=== PATIENT | female | born 1965 | race Caucasian/White ===

== ENCOUNTER 2017-12-01 13:21 | Emergency (ER) | payer MEDICARE, MEDICAID ==
[2017-12-01 13:33] VITALS: BP 127/80
[2017-12-01] MEDS ORDERED: Ketorolac 60 MG/2 ML SDV IM ONE (13:46)
--- NOTE | 2017-12-01 13:49 | EDM.PDOC ---
ED HPI GENERAL MEDICAL PROBLEM - General Chief Complaint: Back Pain or Injury Stated Complaint: PAINFUL KNOT MID UPPER BACK Time Seen by Provider: 12/01/17 13:40 Source of Information: Reports: Patient History Limitations: Reports: No Limitations - History of Present Illness INITIAL COMMENTS - FREE TEXT/NARRATIVE: 52-year-old female woke up 4 mornings ago with pain in her back, it is still bothering her. It hurts to move or breathe. She has taken Tylenol and hasn't helped. No specific trauma such as a fall, no cough or fever. Onset: Unknown/Unsure Duration: Day(s): (4 days) Worsens with: Reports: Breathing, Movement Associated Symptoms: Reports: No Other Symptoms Middle Back Pain Score (Numeric/FACES): 2 - Related Data Allergies Allergy/AdvReac Type Severity Reaction Status Date / Time amoxicillin trihydrate Allergy Other Verified 12/01/17 13:32 [From Augmentin] latex Allergy Other Verified 12/01/17 13:32 potassium clavulanate Allergy Other Verified 12/01/17 13:32 [From Augmentin] buspirone [Buspirone] AdvReac Nausea and Verified 12/01/17 13:32 Vomiting Sulfa (Sulfonamide AdvReac Nausea and Verified 12/01/17 13:32 Antibiotics) Vomiting Home Meds: Home Meds Escitalopram Oxalate [Lexapro] 20 mg PO DAILY 03/08/13 [History] LORazepam [Ativan] 1 mg PO BID 03/08/13 [History] Levothyroxine [Synthroid] 25 mcg PO DAILY 03/08/13 [History] Mirtazapine [Remeron] 15 mg PO DAILY 03/08/13 [History] Simvastatin 20 mg PO DAILY 03/08/13 [History] buPROPion HCl [Bupropion Xl] 150 mg PO DAILY 03/08/13 [History] Alclometasone Dipropionate 1 applic TP BID 08/08/15 [History] Latanoprost [Xalatan 0.005% Ophth Soln] 2.5 ml EYEBOTH BEDTIME 08/08/15 [History ] Mupirocin Oint [Bactroban Oint] 1 applic TOP TID 08/08/15 [History] Timolol Maleate [Timoptic 0.5% Ophth Soln] 1 drop EYEBOTH DAILY 08/08/15 [ History] Triamcinolone Acetonide [Triamcinolone Acetonide 0.1% Oint] 1 applic TOP BID 02/12 [History] Past Medical History HEENT History: Reports: Impaired Vision Other HEENT History: wears glasses 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: Reports: High Cholesterol Gastrointestinal History: Reports: None Genitourinary History: Reports: None 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: Psychiatric History: Reports: Anxiety, Depression, Panic Attack Endocrine/Metabolic History: Reports: Hypothyroidism Dermatologic History: Reports: Eczema - Infectious Disease History Infectious Disease History: Reports: Chicken Pox, Measles, Mumps - Past Surgical History Head Surgeries/Procedures: Reports: None HEENT Surgical History: Reports: None Cardiovascular Surgical History: Reports: None GI Surgical History: Reports: Colonoscopy, EGD Female Surgical History: Reports: Tubal Ligation Endocrine Surgical History: Reports: None Dermatological Surgical History: Reports: None Social & Family History - Tobacco Use Smoking Status *Q: Never Smoker Second Hand Smoke Exposure: No - Caffeine Use Caffeine Use: Reports: Coffee, Tea - Recreational Drug Use Recreational Drug Use: No ED ROS GENERAL - Review of Systems Review Of Systems: See Below Constitutional: Denies: Fever, Chills Respiratory: Denies: Shortness of Breath Cardiovascular: Denies: Chest Pain GI/Abdominal: Denies: Abdominal Pain, Nausea, Vomiting Musculoskeletal: Reports: Back Pain, Muscle Pain Skin: Reports: No Symptoms Neurological: Reports: No Symptoms ED EXAM, UPPER BACK/NECK PAIN - Physical Exam Exam: See Below Exam Limited By: No Limitations General Appearance: Alert, No Apparent Distress Head Exam: Atraumatic Neck Exam: Non-Tender Back Exam: Paraspinal Tenderness (Patient has tenderness to palpation of the right rhomboid area inside the right scapula, no vertebral percussion tenderness ) Course - Vital Signs Last Recorded V/S: Last Vital Signs Temp 97.0 F 12/01/17 13:34 Pulse 92 12/01/17 13:34 Resp 16 12/01/17 13:34 BP 127/80 12/01/17 13:34 Pulse Ox 95 12/01/17 13:34 - Orders/Labs/Meds Meds: Medications Discontinued Medications Generic Name Dose Route Start Last Admin Trade Name Freq PRN Reason Stop Dose Admin Ketorolac Tromethamine 60 mg 12/01/17 13:46 12/01/17 13:49 Toradol IM 12/01/17 13:47 60 mg ONETIME ONE Administration - Re-Assessments/Exams Free Text/Narrative Re-Assessment/Exam: 12/01/17 13:49 Patient has a strained rhomboid on the right side. She was given 60 mg of IM Toradol. 12/01/17 14:23 Patient responded well to the Toradol, and was discharged with 10 additional doses to take 3 times a day. She should recheck in 3 days if not improving satisfactorily she may need a physical therapy consultation. Departure - Departure Time of Disposition: 14:30 Disposition: Home, Self-Care 01 Condition: Good Clinical Impression: Rhomboid pain - Discharge Information Instructions: Muscle Pain, Adult Referrals: Hernán Sykes MD [Primary Care Provider] - Forms: ED Department Discharge Care Plan Goals: Continue your current medications, and take 1 pain pill every 6-8 hours for the next 3 days. Recheck in 2-3 days if not improving satisfactorily.
== END 2017-12-01 14:30 | disposition home or self-care (01) ==
LOC: JP.ED 13:21
DX: M25.511 Pain in right shoulder (principal); E78.00 Pure hypercholesterolemia, unspecified; F41.9 Anxiety disorder, unspecified; F32.9 Major depressive disorder, single episode, unspecified; Z88.1 Allergy status to other antibiotic agents; Z91.040 Latex allergy status; Z79.899 Other long term (current) drug therapy
CPT/HCPCS: 96372; 99282; J1885; 99283

== ENCOUNTER 2018-01-02 18:01 | Emergency (ER) | payer MEDICARE ==
[2018-01-02 18:13] VITALS: BP 129/81
--- NOTE | 2018-01-02 18:19 | EDM.PDOC ---
ED HPI GENERAL MEDICAL PROBLEM - General Chief Complaint: Skin Complaint Stated Complaint: RASH Time Seen by Provider: 01/02/18 18:19 Source of Information: Reports: Patient, Family, RN Notes Reviewed History Limitations: Reports: No Limitations - History of Present Illness INITIAL COMMENTS - FREE TEXT/NARRATIVE: Karen presents today with complaints of worsening rash to her chest, neck and thighs for 2 days. She complains of itchiness and irritation to the rash. Karen reports wearing a wool sweater 7 days ago and developing itching to bilateral wrists. She stopped wearing the sweater. She reports two days ago she developed the rash to her neck, chest and thighs. She has tried use of oatmeal bath packets and hydrocortisone without any improvement. She denies exposure to any new chemicals, soaps, detergents, lotions or topicals. - Related Data Allergies Allergy/AdvReac Type Severity Reaction Status Date / Time amoxicillin trihydrate Allergy Other Verified 01/02/18 18:09 [From Augmentin] latex Allergy Other Verified 01/02/18 18:09 potassium clavulanate Allergy Other Verified 01/02/18 18:09 [From Augmentin] buspirone [Buspirone] AdvReac Nausea and Verified 01/02/18 18:09 Vomiting Sulfa (Sulfonamide AdvReac Nausea and Verified 01/02/18 18:09 Antibiotics) Vomiting Home Meds: Home Meds Escitalopram Oxalate [Lexapro] 20 mg PO DAILY 03/08/13 [History] LORazepam [Ativan] 1 mg PO BID 03/08/13 [History] Levothyroxine [Synthroid] 25 mcg PO DAILY 03/08/13 [History] Mirtazapine [Remeron] 15 mg PO DAILY 03/08/13 [History] Simvastatin 20 mg PO DAILY 03/08/13 [History] buPROPion HCl [Bupropion Xl] 150 mg PO DAILY 03/08/13 [History] Alclometasone Dipropionate 1 applic TP BID 08/08/15 [History] Latanoprost [Xalatan 0.005% Ophth Soln] 2.5 ml EYEBOTH BEDTIME 08/08/15 [History ] Mupirocin Oint [Bactroban Oint] 1 applic TOP TID 08/08/15 [History] Timolol Maleate [Timoptic 0.5% Ophth Soln] 1 drop EYEBOTH DAILY 08/08/15 [ History] Triamcinolone Acetonide [Triamcinolone Acetonide 0.1% Oint] 1 applic TOP BID 02/12 [History] Past Medical History HEENT History: Reports: Impaired Vision Other HEENT History: wears glasses 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: Reports: High Cholesterol Gastrointestinal History: Reports: None Genitourinary History: Reports: 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: Psychiatric History: Reports: Anxiety, Depression, Panic Attack Endocrine/Metabolic History: Reports: Hypothyroidism Dermatologic History: Reports: Eczema - Infectious Disease History Infectious Disease History: Reports: Chicken Pox, Measles, Mumps - Past Surgical History Head Surgeries/Procedures: Reports: None HEENT Surgical History: Reports: None Cardiovascular Surgical History: Reports: None GI Surgical History: Reports: Colonoscopy, EGD Female Surgical History: Reports: Tubal Ligation Endocrine Surgical History: Reports: None Dermatological Surgical History: Reports: None Social & Family History - Tobacco Use Smoking Status *Q: Never Smoker Second Hand Smoke Exposure: No - Caffeine Use Caffeine Use: Reports: Coffee, Tea - Recreational Drug Use Recreational Drug Use: No ED ROS GENERAL - Review of Systems Review Of Systems: See Below Constitutional: Denies: Fever, Chills, Malaise, Weakness HEENT: Reports: No Symptoms Respiratory: Reports: No Symptoms Cardiovascular: Reports: No Symptoms Endocrine: Reports: No Symptoms GI/Abdominal: Reports: No Symptoms Musculoskeletal: Reports: No Symptoms Skin: Reports: Pruritis, Rash Neurological: Reports: No Symptoms Psychiatric: Reports: No Symptoms Hematologic/Lymphatic: Reports: No Symptoms Immunologic: Reports: No Symptoms ED EXAM, SKIN/RASH Exam: See Below Text/Narrative:: Karen presents today for worsening rash with pruritis for two days of the chest , neck and anterior thighs. She has tried use of hydrocortisone and oatmeal bath without benefit. Exam Limited By: No Limitations General Appearance: Alert, WD/WN, No Apparent Distress Eye Exam: Bilateral Eye: Normal Inspection, PERRL Ears: Normal External Exam, Normal Canal, Hearing Grossly Normal, Normal TMs Nose: Normal Inspection, Normal Mucosa Throat/Mouth: Normal Inspection, Normal Lips, Normal Oropharynx, Normal Voice, No Airway Compromise Head: Atraumatic, Normocephalic Neck: Normal Inspection, Supple, Non-Tender, Full Range of Motion. No: Lymphadenopathy (R), Lymphadenopathy (L) Respiratory/Chest: No Respiratory Distress, Lungs Clear, Normal Breath Sounds, No Accessory Muscle Use, Chest Non-Tender Cardiovascular: Normal Peripheral Pulses, Regular Rate, Rhythm, No Edema, No Murmur, No Rub, Other (Rash to chest and neck. ) Back Exam: Normal Inspection, Full Range of Motion. No: CVA Tenderness (R), CVA Tenderness (L) Extremities: Normal Inspection, Normal Range of Motion, Non-Tender, No Pedal Edema, Normal Capillary Refill, Other (Rash to thighs) Neurological: Alert, Oriented, Normal Cognition, Normal Reflexes, No Motor/ Sensory Deficits Psychiatric: Normal Affect, Normal Mood Skin: Warm, Dry, Excoriations, Rash. No: Increased Warmth, Petechiae Location, Skin: Neck, Chest, Abdomen, Other (anterior thighs) Characteristics: Maculopapular, Other (dry, no specific pattern, slightly erythematous without signs of infection. ) Associated features: Scaling Lymphatic: No Adenopathy Course - Vital Signs Last Recorded V/S: Last Vital Signs Temp 36.2 C 01/02/18 18:13 Pulse 86 01/02/18 18:13 Resp 16 01/02/18 18:13 BP 129/81 01/02/18 18:13 Pulse Ox 97 01/02/18 18:13 - Orders/Labs/Meds Meds: Medications Discontinued Medications Generic Name Dose Route Start Last Admin Trade Name Pratikq PRN Reason Stop Dose Admin Hydroxyzine HCl 100 mg 01/02/18 19:00 Vistaril IM 01/02/18 19:01 ONETIME ONE Departure - Departure Time of Disposition: 18:52 Disposition: Home, Self-Care 01 Condition: Good Clinical Impression: Eczema, Pruritus of skin, Dry skin dermatitis - Discharge Information *PRESCRIPTION DRUG MONITORING PROGRAM REVIEWED*: No *COPY OF PRESCRIPTION DRUG MONITORING REPORT IN PATIENT RIYA: No Referrals: Hernán Sykes MD [Primary Care Provider] - Forms: ED Department Discharge Additional Instructions: You have been evaluated and treated for eczema, itching and dry skin. Do not use soaps on your skin. Bathe every other or every 2 days. You can use eucerin cream or the equivalent to your skin for moisture. Use triamcinolone to rash as directed. Take hydroxyzine 25mg by mouth three times a day for itching. Take prednisone 40mg by mouth daily for the rash. Follow up with your primary provider in 3 to 5 days for a recheck of the rash. Return for worsening, issues or concerns. - Assessment/Plan Assessment:: Eczema, Pruritus of skin, Dry skin dermatitis Plan: Patient evaluated and treated for eczema, itching and dry skin. Do not use soaps on the skin. Bathe every other or every 2 days. Use eucerin cream/lotion or the equivalent to skin for moisture twice daily. Use triamcinolone to rash as directed. Take hydroxyzine 25mg by mouth three times a day for itching. Take prednisone 40mg by mouth daily for the rash. Follow up with primary provider in 3 to 5 days for a recheck of the rash. Return for worsening, issues or concerns.
[2018-01-02] MEDS ORDERED: hydrOXYzine HCl 100 MG/2 ML SDV IM ONE (19:00)
== END 2018-01-02 19:23 | disposition home or self-care (01) ==
LOC: JP.ED 18:01
DX: L30.9 Dermatitis, unspecified (principal); E78.00 Pure hypercholesterolemia, unspecified; E03.9 Hypothyroidism, unspecified; F41.9 Anxiety disorder, unspecified; F32.9 Major depressive disorder, single episode, unspecified; Z79.899 Other long term (current) drug therapy; Z88.1 Allergy status to other antibiotic agents; Z88.2 Allergy status to sulfonamides; Z88.8 Allergy status to other drugs, medicaments and biological substances
CPT/HCPCS: 96372; 99282; J3410

== ENCOUNTER 2018-04-17 10:07 | Emergency (ER) | payer MEDICARE, MEDICAID ==
[2018-04-17 10:29] VITALS: BP 110/69
--- NOTE | 2018-04-17 10:47 | EDM.PDOC ---
ED HPI GENERAL MEDICAL PROBLEM - General Chief Complaint: Lower Extremity Injury/Pain Stated Complaint: HURT LT ANKLE Time Seen by Provider: 04/17/18 10:35 Source of Information: Reports: Patient History Limitations: Reports: No Limitations - History of Present Illness INITIAL COMMENTS - FREE TEXT/NARRATIVE: 53-year-old female slipped on the ice this morning injuring her left foot. No other injury. It's now painful to bear weight but she has no significant swelling or bruising. The ankle is nontender, knee is nontender. Most of her pain is on the top of her foot. Onset: Sudden Duration: Hour(s): (Within the last 2 hours) Location: Reports: Lower Extremity, Left Associated Symptoms: Reports: No Other Symptoms Left Ankle Pain Score (Numeric/FACES): 9 - Related Data Allergies Allergy/AdvReac Type Severity Reaction Status Date / Time amoxicillin trihydrate Allergy Other Verified 01/02/18 18:09 [From Augmentin] latex Allergy Other Verified 01/02/18 18:09 potassium clavulanate Allergy Other Verified 01/02/18 18:09 [From Augmentin] buspirone [Buspirone] AdvReac Nausea and Verified 01/02/18 18:09 Vomiting Sulfa (Sulfonamide AdvReac Nausea and Verified 01/02/18 18:09 Antibiotics) Vomiting Home Meds: Home Meds Escitalopram Oxalate [Lexapro] 20 mg PO DAILY 03/08/13 [History] LORazepam [Ativan] 1 mg PO BID 03/08/13 [History] Levothyroxine [Synthroid] 25 mcg PO DAILY 03/08/13 [History] Mirtazapine [Remeron] 15 mg PO DAILY 03/08/13 [History] Simvastatin 20 mg PO DAILY 03/08/13 [History] buPROPion HCl [Bupropion Xl] 150 mg PO DAILY 03/08/13 [History] Alclometasone Dipropionate 1 applic TP BID 08/08/15 [History] Latanoprost [Xalatan 0.005% Ophth Soln] 2.5 ml EYEBOTH BEDTIME 08/08/15 [History ] Mupirocin Oint [Bactroban Oint] 1 applic TOP TID 08/08/15 [History] Timolol Maleate [Timoptic 0.5% Ophth Soln] 1 drop EYEBOTH DAILY 08/08/15 [ History] Triamcinolone Acetonide [Triamcinolone Acetonide 0.1% Oint] 1 applic TOP BID 02/12 [History] Past Medical History HEENT History: Reports: Impaired Vision Other HEENT History: wears glasses 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: Reports: High Cholesterol Gastrointestinal History: Reports: None Genitourinary History: Reports: 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: Psychiatric History: Reports: Anxiety, Depression, Panic Attack Endocrine/Metabolic History: Reports: Hypothyroidism Dermatologic History: Reports: Eczema - Infectious Disease History Infectious Disease History: Reports: Chicken Pox, Measles, Mumps - Past Surgical History Head Surgeries/Procedures: Reports: None HEENT Surgical History: Reports: None Cardiovascular Surgical History: Reports: None GI Surgical History: Reports: Colonoscopy, EGD Female Surgical History: Reports: Tubal Ligation Endocrine Surgical History: Reports: None Dermatological Surgical History: Reports: None Social & Family History - Tobacco Use Smoking Status *Q: Never Smoker - Caffeine Use Caffeine Use: Reports: Coffee, Soda - Recreational Drug Use Recreational Drug Use: No Review of Systems - Review of Systems Review Of Systems: See Below Constitutional: Denies: Fever Respiratory: Reports: No Symptoms Cardiovascular: Reports: No Symptoms GI/Abdominal: Reports: No Symptoms Skin: Reports: No Symptoms Neurological: Denies: Headache ED EXAM, GENERAL - Physical Exam Exam: See Below Exam Limited By: No Limitations General Appearance: Alert, No Apparent Distress Respiratory/Chest: No Respiratory Distress Extremities: Other (Exam is otherwise limited to the lower extremities. The feet appear symmetric, the left foot is palpated and has no pain over the medial or lateral malleolus. She is tender to palpation over the proximal metatarsals especially laterally, but no crepitus or deformity.) Course - Vital Signs Last Recorded V/S: Last Vital Signs Temp 96.8 F 04/17/18 10:28 Pulse 85 04/17/18 10:28 Resp 16 04/17/18 10:28 BP 110/69 04/17/18 10:28 Pulse Ox 95 04/17/18 10:28 - Orders/Labs/Meds Orders: Active Orders 24 hr Category Date Time Status Foot Comp Min 3V Lt [CR] Stat Exams 04/17/18 10:40 Taken - Re-Assessments/Exams Free Text/Narrative Re-Assessment/Exam: 04/17/18 10:47 Foot x-ray was obtained of the left foot. 04/17/18 10:57 X-ray looks normal, three-inch Emanuel wrap was applied to the foot and she'll increase ambulation as tolerated. Departure - Departure Time of Disposition: 11:06 Disposition: Home, Self-Care 01 Condition: Good Clinical Impression: Sprain of foot, left Qualifiers: Encounter type: initial encounter Qualified Code(s): S93.602A - Unspecified sprain of left foot, initial encounter - Discharge Information Instructions: Foot Sprain Referrals: Hernán Sykes MD [Primary Care Provider] - Forms: ED Department Discharge Care Plan Goals: Wear Emanuel wrap for support, ibuprofen or naproxen will help with pain and increase activity as tolerated. Consider rechecking next week if not improving satisfactorily. - My Orders Last 24 Hours: My Active Orders 04/17/18 10:40 Foot Comp Min 3V Lt [CR] Stat - Assessment/Plan Last 24 Hours: My Active Orders 04/17/18 10:40 Foot Comp Min 3V Lt [CR] Stat
== END 2018-04-17 11:00 | disposition home or self-care (01) ==
LOC: JP.ED 10:07
DX: S93.602A Unspecified sprain of left foot, initial encounter (principal); E78.00 Pure hypercholesterolemia, unspecified; F41.9 Anxiety disorder, unspecified; F32.9 Major depressive disorder, single episode, unspecified; Z88.1 Allergy status to other antibiotic agents; Z88.2 Allergy status to sulfonamides; Z79.899 Other long term (current) drug therapy; W00.0XXA Fall on same level due to ice and snow, initial encounter
CPT/HCPCS: 73630-LT; 99284

== ENCOUNTER 2018-10-09 13:01 | Emergency (ER) | payer MEDICARE ==
[2018-10-09] MEDS ORDERED: Meclizine 25 MG Tab PO ONE (13:41)
[2018-10-09] MEDS ORDERED: Ondansetron 4 MG Tab.DIS PO ONE (13:41)
--- NOTE | 2018-10-09 13:44 | EDM.PDOC ---
ED HPI GENERAL MEDICAL PROBLEM - General Chief Complaint: General Stated Complaint: DIZZY,NOT FEELING WELL Time Seen by Provider: 10/09/18 13:36 Source of Information: Reports: Patient, RN Notes Reviewed History Limitations: Reports: No Limitations - History of Present Illness INITIAL COMMENTS - FREE TEXT/NARRATIVE: 53-year-old female presents emergency department today complaint of dizziness, she states he started feeling dizzy last night this morning still feeling dizzy she describes the dizziness as room spinning she does have some difficulty walking and is nauseated. No other complaints at this time denies Pain Score (Numeric/FACES): 0 - Related Data Allergies Allergy/AdvReac Type Severity Reaction Status Date / Time amoxicillin trihydrate Allergy Other Verified 10/09/18 13:20 [From Augmentin] latex Allergy Other Verified 10/09/18 13:20 potassium clavulanate Allergy Other Verified 10/09/18 13:20 [From Augmentin] buspirone [Buspirone] AdvReac Nausea and Verified 10/09/18 13:20 Vomiting Sulfa (Sulfonamide AdvReac Nausea and Verified 10/09/18 13:20 Antibiotics) Vomiting Home Meds: Home Meds Escitalopram Oxalate [Lexapro] 20 mg PO DAILY 03/08/13 [History] LORazepam [Ativan] 1 mg PO BID 03/08/13 [History] Levothyroxine [Synthroid] 25 mcg PO DAILY 03/08/13 [History] Mirtazapine [Remeron] 15 mg PO DAILY 03/08/13 [History] Simvastatin 20 mg PO DAILY 03/08/13 [History] buPROPion HCl [Bupropion Xl] 150 mg PO DAILY 03/08/13 [History] Alclometasone Dipropionate 1 applic TP BID 08/08/15 [History] Latanoprost [Xalatan 0.005% Ophth Soln] 2.5 ml EYEBOTH BEDTIME 08/08/15 [History ] Mupirocin Oint [Bactroban Oint] 1 applic TOP TID 08/08/15 [History] Timolol Maleate [Timoptic 0.5% Ophth Soln] 1 drop EYEBOTH DAILY 08/08/15 [ History] Triamcinolone Acetonide [Triamcinolone Acetonide 0.1% Oint] 1 applic TOP BID 02/12 [History] Past Medical History HEENT History: Reports: Impaired Vision Other HEENT History: wears glasses 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: Reports: High Cholesterol 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: Psychiatric History: Reports: Anxiety, Depression, Panic Attack Endocrine/Metabolic History: Reports: Hypothyroidism Dermatologic History: Reports: Eczema - Infectious Disease History Infectious Disease History: Reports: Chicken Pox, Measles, Mumps - Past Surgical History Head Surgeries/Procedures: Reports: None HEENT Surgical History: Reports: None Cardiovascular Surgical History: Reports: None GI Surgical History: Reports: Colonoscopy, EGD Female Surgical History: Reports: Tubal Ligation Endocrine Surgical History: Reports: None Dermatological Surgical History: Reports: None Social & Family History - Tobacco Use Smoking Status *Q: Never Smoker - Caffeine Use Caffeine Use: Reports: Coffee, Soda - Recreational Drug Use Recreational Drug Use: No ED ROS GENERAL - Review of Systems Review Of Systems: See Below Constitutional: Reports: No Symptoms HEENT: Reports: No Symptoms Respiratory: Reports: No Symptoms Cardiovascular: Reports: No Symptoms GI/Abdominal: Reports: No Symptoms : Reports: No Symptoms Musculoskeletal: Reports: No Symptoms Neurological: Reports: Dizziness, Difficulty Walking ED EXAM, GENERAL - Physical Exam Exam: See Below Free Text/Narrative:: General: Female, not in any distress, alert and oriented x3 HEENT: head is atraumatic normocephalic, eyes pupils equal round reactive to light, sclera clear no conjunctivitis appreciated extraocular eye movements intact. Ears tympanic membranes clear and aparicio landmarks and light reflex are present bilaterally canals are clear. Nose no septal deviation, nares are clear, no blood present. Mouth mucosa is moist and pink no erythema or exudate noted in soft palate, tongue is midline uvula is midline, dentition is intact. Neck: Supple no thyromegaly no tracheal deviation. Nodes: Cervical nodes subclavicular nodes nontender no palpable lymphadenopathy noted. Lungs: clear to auscultation bilaterally with symmetrical respirations, no adventitious noise appreciated. CV: Regular rate and rhythm S1 and S2 appreciated no murmurs rubs or gallops noted. Head impulse test: Negative loss of fixation with corrective saccades when head turned to the bilateral Nystagmus: unidirectional, horizontal 0-beating nystagmus Skew deviation: grossly absent Course - Vital Signs Last Recorded V/S: Last Vital Signs Temp 97.0 F 10/09/18 13:20 Pulse 75 10/09/18 17:25 Resp 12 10/09/18 17:25 BP 110/71 10/09/18 17:25 Pulse Ox 99 10/09/18 17:25 - Orders/Labs/Meds Orders: Active Orders 24 hr Category Date Time Status Peripheral IV Care [RC] . DIRECTED Care 10/09/18 15:35 Active Iopamidol [Isovue-300 (61%)] Med 10/09/18 15:45 Active 150 ml IV . DIRECTED Sodium Chloride 0.9% [Normal Saline] 1,000 ml Med 10/09/18 15:45 Active IV ASDIRECTED Sodium Chloride 0.9% [Saline Flush] Med 10/09/18 15:35 Active 10 ml FLUSH ASDIRECTED PRN Peripheral IV Insertion Adult [OM.PC] Urgent Oth 10/09/18 15:35 Ordered Medication Orders Sodium Chloride (Normal Saline) 1,000 mls @ 500 mls/hr IV ASDIRECTED MARCE Iopamidol (Isovue-300 (61%)) 150 ml IV . DIRECTED MARCE Sodium Chloride (Saline Flush) 10 ml FLUSH ASDIRECTED PRN PRN Reason: Keep Vein Open Labs: Laboratory Tests 10/09/18 10/09/18 Range/Units 15:49 15:49 WBC 7.2 (4.5-11.0) K/uL RBC 3.77 (3.30-5.50) M/uL Hgb 11.7 L (12.0-15.0) g/dL Hct 36.7 (36.0-48.0) % MCV 97 (80-98) fL MCH 31 (27-31) pg MCHC 32 (32-36) % Plt Count 188 (150-400) K/uL Neut % (Auto) 75 H (36-66) % Lymph % (Auto) 16 L (24-44) % Otero % (Auto) 7 H (2-6) % Eos % (Auto) 2 (2-4) % Baso % (Auto) 0 (0-1) % Sodium 144 (140-148) mmol/L Potassium 4.3 (3.6-5.2) mmol/L Chloride 107 (100-108) mmol/L Carbon Dioxide 32 (21-32) mmol/L Anion Gap 4.6 L (5.0-14.0) mmol/L BUN 16 (7-18) mg/dL Creatinine 1.0 (0.6-1.0) mg/dL Est Cr Clr Drug Dosing 64.88 mL/min Estimated GFR (MDRD) 58 L (>60) Glucose 97 (74-106) mg/dL Calcium 8.7 (8.5-10.1) mg/dL Meds: Medications Generic Name Dose Route Start Last Admin Trade Name Freq PRN Reason Stop Dose Admin Sodium Chloride 1,000 mls @ 500 mls/hr 10/09/18 15:45 Normal Saline IV ASDIRECTED MARCE Iopamidol 150 ml 10/09/18 15:45 Isovue-300 (61%) IV . DIRECTED MARCE Sodium Chloride 10 ml 10/09/18 15:35 Saline Flush FLUSH ASDIRECTED PRN Keep Vein Open Discontinued Medications Generic Name Dose Route Start Last Admin Trade Name Freq PRN Reason Stop Dose Admin Sodium Chloride 100 mls @ 3.5 mls/sec 10/09/18 15:45 Normal Saline IV 10/09/18 15:46 ONETIME ONE Lorazepam 1 mg 10/09/18 14:59 10/09/18 15:03 Ativan PO 10/09/18 15:00 1 mg ONETIME ONE Administration Meclizine HCl 25 mg 10/09/18 13:41 10/09/18 13:58 Antivert PO 10/09/18 13:42 25 mg ONETIME ONE Administration Ondansetron HCl 4 mg 10/09/18 13:41 10/09/18 13:58 Zofran Odt PO 10/09/18 13:42 4 mg ONETIME ONE Administration Sodium Chloride 10 ml 10/09/18 15:45 Saline Flush FLUSH 10/09/18 15:46 ONETIME ONE Departure - Departure Time of Disposition: 17:34 Disposition: Home, Self-Care 01 Condition: Fair Clinical Impression: Vertigo - Discharge Information Referrals: Hernán Sykes MD [Primary Care Provider] - Forms: ED Department Discharge Additional Instructions: Try the meclizine [id number] as needed for dizzy symptoms, Please followup with your primary care provider in 2-3 days if not better, please call return to the emergency department with worsening of symptoms. - My Orders Last 24 Hours: My Active Orders 10/09/18 15:35 Peripheral IV Care [RC] . DIRECTED Sodium Chloride 0.9% [Saline Flush] 10 ml FLUSH ASDIRECTED PRN Peripheral IV Insertion Adult [OM.PC] Urgent 10/09/18 15:45 Iopamidol [Isovue-300 (61%)] 150 ml IV . DIRECTED Sodium Chloride 0.9% [Normal Saline] 1,000 ml IV ASDIRECTED - Assessment/Plan Last 24 Hours: My Active Orders 10/09/18 15:35 Peripheral IV Care [RC] . DIRECTED Sodium Chloride 0.9% [Saline Flush] 10 ml FLUSH ASDIRECTED PRN Peripheral IV Insertion Adult [OM.PC] Urgent 10/09/18 15:45 Iopamidol [Isovue-300 (61%)] 150 ml IV . DIRECTED Sodium Chloride 0.9% [Normal Saline] 1,000 ml IV ASDIRECTED Plan: Assessment Acuity = acute Site and laterality = vertigo Etiology = unclear etiology Manifestations = nausea now resolved Location of injury = Home Lab values = CBC, BMP, CTA all unremarkable Plan She had no improvement of the treatments provided which included fluids, meclizine, Ativan, plan is to follow up with primary care in the next 2-3 days for reevaluation discussed the possibility consultation with ear nose and throat This note was dictated using [employer] voice recognition software please call with any questions on syntax or grammar.
[2018-10-09] MEDS ORDERED: LORazepam 1 MG Tab PO ONE (14:59)
[2018-10-09] MEDS ORDERED: Sodium Chloride 0.9% 10 ML Syringe FLUSH PRN (15:35)
[2018-10-09] MEDS ORDERED: Sodium Chloride 0.9% 1,000 ML IV SCH (15:45)
[2018-10-09] MEDS ORDERED: Sodium Chloride 0.9% 10 ML Syringe FLUSH ONE (15:45)
[2018-10-09] MEDS ORDERED: Iopamidol 612 MG/ML 150 ML Bottle IV SCH (15:45)
[2018-10-09] MEDS ORDERED: Sodium Chloride 0.9% 100 ML IV ONE (15:45)
--- NOTE | 2018-10-09 17:17 | CRLCT ---
INDICATION: Difficulty walking. TECHNIQUE: High resolution axial CT images acquired through the head following rapid intravenous administration of iodinated contrast. Multiplanar MIPS of cranial vasculature performed. COMPARISON: None. FINDINGS: There is normal filling of the intracranial vasculature; i.e. there is no large vessel occlusion or intracranial stenosis. There is no cerebral aneurysm or evidence for vascular malformation. The underlying brain parenchyma is normal at CTA. IMPRESSION: Normal CTA head. Jurgen Bowens MD Neurointerventional Radiologist [facility] Please note that all CT scans at this facility use dose modulation, iterative reconstruction, and/or weight-based dosing when appropriate to reduce radiation dose to as low as reasonably achievable. Dictated by Jurgen Bowens MD @ Oct 11 2018 8:14AM Signed by Dr. Jurgen Bowens @ Oct 11 2018 12:34PM
[2018-10-09 17:25] VITALS: BP 110/71; PULSE 75
== END 2018-10-09 18:00 | disposition home or self-care (01) ==
LOC: JP.ED 13:01
DX: R42 Dizziness and giddiness (principal); E03.9 Hypothyroidism, unspecified; F41.9 Anxiety disorder, unspecified; F32.9 Major depressive disorder, single episode, unspecified; Z79.899 Other long term (current) drug therapy; Z98.51 Tubal ligation status; Z88.1 Allergy status to other antibiotic agents; Z88.2 Allergy status to sulfonamides; Z91.040 Latex allergy status
CPT/HCPCS: 36415; 70496; 80048; 85025; 99284; A9270; 99283

== ENCOUNTER 2018-11-17 21:05 | Emergency (ER) | payer MEDICARE ==
[2018-11-17 21:25] VITALS: BP 100/60; PULSE 57
--- NOTE | 2018-11-17 21:38 | EDM.PDOC ---
ED HPI GENERAL MEDICAL PROBLEM - General Chief Complaint: Fever Stated Complaint: COUGH & FEVER Time Seen by Provider: 11/17/18 21:25 Source of Information: Reports: Patient History Limitations: Reports: No Limitations - History of Present Illness INITIAL COMMENTS - FREE TEXT/NARRATIVE: 53-year-old female who was fine until this morning when she woke up with generalized body aches, fever, a cough and nasal congestion. She's felt awful all day long, her body feels warm, she has a persistent cough and she coughs so hard she's been throwing up. Persistent nasal congestion and scratchy throat. No shortness of breath. She is coughing up "yellow stuff". She is unsure where she picked up the infection. She denies abdominal pain. Onset: Unknown/Unsure (Woke up with symptoms) Associated Symptoms: Reports: Cough, Fever/Chills, Nausea/Vomiting, Weakness, Other (Generalized muscle aches). Denies: Shortness of Breath - Related Data Allergies Allergy/AdvReac Type Severity Reaction Status Date / Time amoxicillin trihydrate Allergy Other Verified 11/17/18 21:20 [From Augmentin] latex Allergy Other Verified 11/17/18 21:20 potassium clavulanate Allergy Other Verified 11/17/18 21:20 [From Augmentin] buspirone [Buspirone] AdvReac Nausea and Verified 11/17/18 21:20 Vomiting Sulfa (Sulfonamide AdvReac Nausea and Verified 11/17/18 21:20 Antibiotics) Vomiting Home Meds: Home Meds Escitalopram Oxalate [Lexapro] 20 mg PO DAILY 03/08/13 [History] LORazepam [Ativan] 1 mg PO BID 03/08/13 [History] Levothyroxine [Synthroid] 25 mcg PO DAILY 03/08/13 [History] Mirtazapine [Remeron] 15 mg PO DAILY 03/08/13 [History] Simvastatin 20 mg PO DAILY 03/08/13 [History] buPROPion HCl [Bupropion Xl] 150 mg PO DAILY 03/08/13 [History] Alclometasone Dipropionate 1 applic TP BID 08/08/15 [History] Latanoprost [Xalatan 0.005% Ophth Soln] 2.5 ml EYEBOTH BEDTIME 08/08/15 [History ] Mupirocin Oint [Bactroban Oint] 1 applic TOP TID 08/08/15 [History] Timolol Maleate [Timoptic 0.5% Ophth Soln] 1 drop EYEBOTH DAILY 08/08/15 [ History] Triamcinolone Acetonide [Triamcinolone Acetonide 0.1% Oint] 1 applic TOP BID 02/12 [History] Past Medical History HEENT History: Reports: Impaired Vision Other HEENT History: wears glasses 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: Reports: High Cholesterol Gastrointestinal History: Reports: None Genitourinary History: Reports: None 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: Psychiatric History: Reports: Anxiety, Depression, Panic Attack Endocrine/Metabolic History: Reports: Hypothyroidism Dermatologic History: Reports: Eczema - Infectious Disease History Infectious Disease History: Reports: Chicken Pox, Measles, Mumps - Past Surgical History Head Surgeries/Procedures: Reports: None HEENT Surgical History: Reports: None Cardiovascular Surgical History: Reports: None GI Surgical History: Reports: Colonoscopy, EGD Female Surgical History: Reports: Tubal Ligation Endocrine Surgical History: Reports: None Dermatological Surgical History: Reports: None Social & Family History - Tobacco Use Smoking Status *Q: Never Smoker - Caffeine Use Caffeine Use: Reports: Coffee, Soda, Tea - Recreational Drug Use Recreational Drug Use: No ED ROS GENERAL - Review of Systems Review Of Systems: See Below Constitutional: Denies: Fever, Chills HEENT: Reports: Rhinitis, Sinus Problem, Throat Pain Respiratory: Reports: Cough, Sputum. Denies: Shortness of Breath Cardiovascular: Denies: Chest Pain GI/Abdominal: Reports: Nausea, Vomiting. Denies: Abdominal Pain : Reports: No Symptoms Skin: Reports: No Symptoms. Denies: Rash Neurological: Reports: No Symptoms. Denies: Headache ED EXAM, GENERAL - Physical Exam Exam: See Below Exam Limited By: No Limitations General Appearance: Alert, No Apparent Distress, Other (She does have a persistent cough and looks miserable) Ears: Normal TMs Throat/Mouth: Normal Inspection Head: Atraumatic Neck: No: Lymphadenopathy (R), Lymphadenopathy (L) Respiratory/Chest: No Respiratory Distress, Lungs Clear Neurological: Alert, Oriented Skin Exam: Warm, Dry Course - Vital Signs Last Recorded V/S: Last Vital Signs Temp 99.1 F 11/17/18 21:28 Pulse 57 L 11/17/18 21:28 Resp 17 11/17/18 21:28 BP 100/60 11/17/18 21:28 Pulse Ox 96 11/17/18 21:28 - Re-Assessments/Exams Free Text/Narrative Re-Assessment/Exam: 11/17/18 21:38 A two-view chest x-ray was obtained. 11/17/18 21:55 Patient's chest x-ray looks perfectly clear. I explained to her that she has a viral cold and will have to resolve on its own, she can return if worsening such as difficulty breathing or persistent vomiting. Departure - Departure Time of Disposition: 22:08 Disposition: Home, Self-Care 01 Clinical Impression: Acute bronchitis, viral, Viral URI with cough - Discharge Information Instructions: Viral Respiratory Infection, [id number] Referrals: Hernán Sykes MD [Primary Care Provider] - Forms: ED Department Discharge Care Plan Goals: Rest, fluids, [id number] cold medicines may be helpful. Increase activity as tolerated and consider rechecking in 2-3 days if not improving satisfactorily. Return sooner if worsening such as difficulty breathing.
--- NOTE | 2018-11-17 22:02 | CRLCR ---
INDICATION: Dyspnea COMPARISON: None available. FINDINGS: PA and lateral views of the chest were obtained. The lungs are clear. No focal or diffuse infiltrates are present. The heart is normal in size. The mediastinum is normal in appearance. The osseous structures are normal in appearance for the patient`s age. IMPRESSION: Normal chest 2 views. Dictated by Zaki Langston MD @ Nov 17 2018 10:00PM Signed by Dr. Zaki Langston @ Nov 17 2018 10:01PM
== END 2018-11-17 22:13 | disposition home or self-care (01) ==
LOC: JP.ED 21:05
DX: J06.9 Acute upper respiratory infection, unspecified (principal); J20.8 Acute bronchitis due to other specified organisms; B97.89 Other viral agents as the cause of diseases classified elsewhere; Z88.1 Allergy status to other antibiotic agents; Z91.040 Latex allergy status; Z88.2 Allergy status to sulfonamides; E03.9 Hypothyroidism, unspecified; F41.9 Anxiety disorder, unspecified; F32.9 Major depressive disorder, single episode, unspecified; Z79.899 Other long term (current) drug therapy
CPT/HCPCS: 71046; 99283; 99283-25

== ENCOUNTER 2020-07-30 10:11 | Emergency (ER) | payer MEDICARE ==
[2020-07-30 10:44] VITALS: BP 103/68; PULSE 74
--- NOTE | 2020-07-30 11:07 | EDM.PDOC ---
ED HPI GENERAL MEDICAL PROBLEM - General Chief Complaint: Bite:Animal, Insect Stated Complaint: TICK BITE Time Seen by Provider: 07/30/20 11:00 Source of Information: Reports: Patient, Old Records, RN History Limitations: Reports: No Limitations - History of Present Illness INITIAL COMMENTS - FREE TEXT/NARRATIVE: 55 yo female presents with a wood tick in a plastic bag that her boyfriend removed from behind her L knee today. Did not reach out to her provider. 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: Other (see below) (none) - Related Data Allergies Allergy/AdvReac Type Severity Reaction Status Date / Time amoxicillin trihydrate Allergy Other Verified 07/30/20 10:43 [From Augmentin] latex Allergy Other Verified 07/30/20 10:43 potassium clavulanate Allergy Other Verified 07/30/20 10:43 [From Augmentin] buspirone [Buspirone] AdvReac Nausea and Verified 07/30/20 10:43 Vomiting Sulfa (Sulfonamide AdvReac Nausea and Verified 07/30/20 10:43 Antibiotics) Vomiting Home Meds: Home Meds Escitalopram Oxalate [Lexapro] 20 mg PO DAILY 03/08/13 [History] LORazepam [Ativan] 1 mg PO BID 03/08/13 [History] Levothyroxine [Synthroid] 25 mcg PO DAILY 03/08/13 [History] Simvastatin 20 mg PO DAILY 03/08/13 [History] buPROPion HCl [Bupropion Xl] 150 mg PO DAILY 03/08/13 [History] Alclometasone Dipropionate 1 applic TP BID 08/08/15 [History] Latanoprost [Xalatan 0.005% Ophth Soln] 2.5 ml EYEBOTH BEDTIME 08/08/15 [History] Mupirocin Oint [Bactroban Oint] 1 applic TOP TID 08/08/15 [History] Triamcinolone Acetonide [Triamcinolone Acetonide 0.1% Oint] 1 applic TOP BID 08/08/15 [History] timoloL maleate [Timoptic 0.5% Ophth Soln] 1 drop EYEBOTH DAILY 08/08/15 [History] traZODone 50 mg PO BEDTIME 07/30/20 [History] Past Medical History HEENT History: Reports: Impaired Vision Other HEENT History: wears glasses 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: Reports: High Cholesterol Gastrointestinal History: Reports: None Genitourinary History: Reports: 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: 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 History: Reports: Anxiety, Depression, Panic Attack Endocrine/Metabolic History: Reports: Hypothyroidism Dermatologic History: Reports: Eczema - Infectious Disease History Infectious Disease History: Reports: Chicken Pox, Measles, Mumps - Past Surgical History Head Surgeries/Procedures: Reports: None HEENT Surgical History: Reports: None Cardiovascular Surgical History: Reports: None GI Surgical History: Reports: Colonoscopy, EGD Female Surgical History: Reports: Tubal Ligation Endocrine Surgical History: Reports: None Dermatological Surgical History: Reports: None Social & Family History - Tobacco Use Tobacco Use Status *Q: Never Tobacco User - Caffeine Use Caffeine Use: Reports: Coffee, Soda, Tea ED ROS GENERAL - Review of Systems Review Of Systems: See Below Constitutional: Reports: No Symptoms Skin: Reports: Other (small wound behind the L knee where the tick was attached.) Neurological: Reports: No Symptoms ED EXAM, ANIMAL BITE - Physical Exam Exam: See Below Exam Limited By: No Limitations General Appearance: Alert, WD/WN, No Apparent Distress Extremities: Normal Inspection Neurological: Alert, Oriented, CN II-XII Intact, Normal Cognition, No Motor/Sensory Deficits Skin Exam: Normal Color, Warm/Dry, Other (small dot of dried blood behind the L knee where the tick was attached. ) Course - Vital Signs Last Recorded V/S: Last Vital Signs Temp 36.6 C 07/30/20 10:42 Pulse 74 07/30/20 10:42 Resp 16 07/30/20 10:42 BP 103/68 07/30/20 10:42 Pulse Ox 95 07/30/20 10:42 Departure - Departure Time of Disposition: 11:12 Disposition: Home, Self-Care 01 Condition: Good Clinical Impression: Wood tick bite - Discharge Information *PRESCRIPTION DRUG MONITORING PROGRAM REVIEWED*: Not Applicable *COPY OF PRESCRIPTION DRUG MONITORING REPORT IN PATIENT RIYA: Not Applicable Instructions: Tick Bite Information, Adult, [id number] Referrals: Hernán Sykes MD [Primary Care Provider] - Additional Instructions: Don't scratch your tick bite spot. Wash with alcohol or soap and water twice daily. Sepsis Event Note (ED) - Evaluation Sepsis Screening Result: No Definite Risk - Focused Exam Vital Signs: Vital Signs Temp Pulse Resp BP Pulse Ox 07/30/20 10:42 36.6 C 74 16 103/68 95
== END 2020-07-30 11:27 | disposition home or self-care (01) ==
LOC: JP.ED 10:11
DX: S80.262A Insect bite (nonvenomous), left knee, initial encounter (principal); E78.00 Pure hypercholesterolemia, unspecified; E03.9 Hypothyroidism, unspecified; Z88.0 Allergy status to penicillin; Z88.8 Allergy status to other drugs, medicaments and biological substances; Z91.040 Latex allergy status; Z88.2 Allergy status to sulfonamides; W57.XXXA Bitten or stung by nonvenomous insect and other nonvenomous arthropods, initial encounter
CPT/HCPCS: 99282

== ENCOUNTER 2023-10-05 19:46 | Emergency (ER) | payer MEDICARE ==
[2023-10-05 19:54] VITALS: BP 147/88; PULSE 98
[2023-10-05] MEDS: Diphtheria,Pertussis(Acell),Tetanus Vaccine 0.5 ML Syringe IM ONE (21:53)
== END 2023-10-05 22:05 | disposition home or self-care (01) ==
LOC: JP.ED 19:46
DX: S91.331A Puncture wound without foreign body, right foot, initial encounter (principal); E78.00 Pure hypercholesterolemia, unspecified; Z91.040 Latex allergy status; Z88.1 Allergy status to other antibiotic agents; Z88.2 Allergy status to sulfonamides; Z88.8 Allergy status to other drugs, medicaments and biological substances; Z23 Encounter for immunization; Z79.899 Other long term (current) drug therapy; W22.8XXA Striking against or struck by other objects, initial encounter
CPT/HCPCS: 73630-26-RT; 73630-RT; 90471; 90715; 99283-25

== ENCOUNTER 2024-06-02 12:40 | Emergency (ER) | payer MEDICARE ==
[2024-06-02 13:48] VITALS: BP 144/72; PULSE 85
== END 2024-06-02 15:33 | disposition home or self-care (01) ==
LOC: JP.ED 12:40
DX: S09.92XA Unspecified injury of nose, initial encounter (principal); Z79.899 Other long term (current) drug therapy; Z88.0 Allergy status to penicillin; Z88.2 Allergy status to sulfonamides; Z88.8 Allergy status to other drugs, medicaments and biological substances; Z91.040 Latex allergy status; W19.XXXA Unspecified fall, initial encounter; M25.562 Pain in left knee; G89.29 Other chronic pain; M70.42 Prepatellar bursitis, left knee; M85.68 Other cyst of bone, other site; R60.0 Localized edema; M89.8X8 Other specified disorders of bone, other site; R23.4 Changes in skin texture; M22.42 Chondromalacia patellae, left knee
CPT/HCPCS: 70160; 70160-26; 73721-26-LT; 73721-LT; 99283; 99284

== ENCOUNTER 2024-07-04 06:12 | Day surgery (SDC) | payer MEDICARE ==
[2024-07-04 06:32] LABS: HEMATOCRIT 39.6 % (34.3-46.0); HEMOGLOBIN 13.1 g/dL (11.2-15.5); MEAN CORPUSCULAR HEMOGLOBIN 32.8 pg (31.6-35.5); MEAN CORPUSCULAR HGB CONC 33.1 g/dL (31.6-35.5); WHITE BLOOD CELL COUNT,WBC 10.5 K/uL (3.2-11.0)
[2024-07-04] MEDS: Nozin Nasal Sanitizer NASBOTH ONE (06:46)
[2024-07-04 06:54] LABS: A/G RATIO 0.8 (1.2-2.2); ALANINE AMINOTRANSFERASE,ALT 19 U/L (12-78); ALBUMIN 3.6 g/dL (3.4-5.0); ALKALINE PHOSPHATASE 146 U/L (46-116); ASPARTATE AMNIOTRANSFERASE,AST 15 U/L (15-37); BILIRUBIN TOTAL 0.3 mg/dL (0.2-1.0); BLOOD UREA NITROGEN,BUN 23 mg/dL (7-18); CARBON DIOXIDE,CO2 27 mmol/L (21-32); CHLORIDE,CL 100 mmol/L (100-108); CREATININE 1.2 mg/dL (0.6-1.0); ESTIMATED GFR 52 mL/min (>60); GLUCOSE RANDOM 101 mg/dL (74-106); SODIUM,NA 141 mmol/L (140-148)
[2024-07-04] MEDS ORDERED: Neostigmine Methylsulfate 10 MG/10 ML MDV ONE (07:00)
[2024-07-04] MEDS ORDERED: Ondansetron 4 MG/2 ML SDV ONE (07:00)
[2024-07-04] MEDS ORDERED: Propofol 200 MG/20 ML SDV ONE (07:00)
[2024-07-04] MEDS ORDERED: Dexamethasone 4 MG/ML SDV ONE (07:00)
[2024-07-04] MEDS ORDERED: Rocuronium 50 MG/5 ML Vial ONE (07:00)
[2024-07-04] MEDS ORDERED: Glycopyrrolate 0.2 MG/ML 5 ML MDV ONE (07:00)
[2024-07-04] MEDS ORDERED: Succinylcholine 200 MG/10 ML MDV ONE (07:00)
[2024-07-04] MEDS ORDERED: fentaNYL 250 MCG/5 ML SDV ONE (07:02)
[2024-07-04] MEDS: Lactated Ringers 1,000 ML IV SCH (07:06)
[2024-07-04] MEDS: ceFAZolin 1 GM in Premix Bag 1 BAG IV ONE (07:55)
[2024-07-04] MEDS: Bupivacaine 0.5% 30 ML SDV INJECT ONE (08:00)
[2024-07-04] MEDS: Acetaminophen/HYDROcodone 325-5 MG Tab PO ONE (10:13)
[2024-07-04 10:48] VITALS: BP 132/70; PULSE 80
== END 2024-07-04 10:50 | disposition home or self-care (01) ==
LOC: JP.SDS 06:12
PROVIDERS: ATTEND Specialist
DX: M22.42 Chondromalacia patellae, left knee (principal); I25.10 Atherosclerotic heart disease of native coronary artery without angina pectoris; Z88.8 Allergy status to other drugs, medicaments and biological substances; Z91.040 Latex allergy status
CPT/HCPCS: 29877; 36415; 80053; 85027; A9270; J0330; J0665; J0689; J1100; J1596; J2405; J2704; J2710; J3010; J7120; J3490

== ENCOUNTER 2024-08-20 07:03 | Emergency (ER) | payer MEDICARE ==
[2024-08-20] MEDS: fentaNYL 100 MCG/2 ML SDV NASBOTH ONE (07:51)
[2024-08-20] MEDS: fentaNYL 50 MCG/ML SDV ONE (07:52)
[2024-08-20] MEDS: fentaNYL 100 MCG/2 ML SDV IM ONE (07:55)
[2024-08-20 09:18] VITALS: BP 117/61; PULSE 86
== END 2024-08-20 09:27 | disposition home or self-care (01) ==
LOC: JP.ED 07:03
DX: S42.032A Displaced fracture of lateral end of left clavicle, initial encounter for closed fracture (principal); E78.00 Pure hypercholesterolemia, unspecified; E03.9 Hypothyroidism, unspecified; Z79.899 Other long term (current) drug therapy; Z88.0 Allergy status to penicillin; Z91.040 Latex allergy status; Z88.2 Allergy status to sulfonamides; Z88.5 Allergy status to narcotic agent; Z88.8 Allergy status to other drugs, medicaments and biological substances; Z79.890 Hormone replacement therapy; W01.0XXA Fall on same level from slipping, tripping and stumbling without subsequent striking against object, initial encounter; Y92.009 Unspecified place in unspecified non-institutional (private) residence as the place of occurrence of the external cause
CPT/HCPCS: 73030; 73562; 99283; J3010

== ENCOUNTER 2024-08-23 22:48 | Emergency (ER) | payer MEDICARE ==
[2024-08-23 23:00] VITALS: PULSE 94
[2024-08-23 23:33] LABS: BASOPHILS ABSOLUTE AUTO 0.03 K/uL (0.00-0.10); BASOPHILS PERCENT AUTO 0.3 % (0.1-1.3); EOSINOPHILS ABSOLUTE AUTO 0.14 K/uL (0.00-0.40); EOSINOPHILS PERCENT AUTO 1.3 % (0.0-5.4); HEMOGLOBIN 11.7 g/dL (11.2-15.5); IMMATURE GRAN ABSOLUTE AUTO 0.04 K/uL (0.00-0.23); IMMATURE GRAN PERCENT AUTO 0.4 % (0.0-0.7); LYMPHOCYTES ABSOLUTE AUTO 0.95 K/uL (0.8-3.3); LYMPHOCYTES PERCENT AUTO 8.6 % (11.4-47.7); MEAN CORPUSCULAR HEMOGLOBIN 32.8 pg (31.6-35.5); MEAN CORPUSCULAR HGB CONC 33.4 g/dL (31.6-35.5); MONOCYTES ABSOLUTE AUTO 0.92 K/uL (0.20-0.90); MONOCYTES PERCENT AUTO 8.3 % (3.3-12.6); NEUTROPHILS ABSOLUTE AUTO 8.95 K/uL (1.0-7.6); NEUTROPHILS PERCENT AUTO 81.1 % (40.0-78.1); PLATELET COUNT,PLT 258 K/uL (130-375); RED BLOOD CELL COUNT 3.57 M/uL (3.77-5.24)
[2024-08-23 23:49] LABS: CALCIUM 8.7 mg/dL (8.5-10.1); CREATININE 1.2 mg/dL (0.6-1.0); EST CRCL DRUG DOSING (CG) 52.1 mL/min; POTASSIUM,K 3.2 mmol/L (3.6-5.2)
[2024-08-23 23:50] LABS: ANION GAP 11.2 mmol/L (5.0-14.0)
[2024-08-24] MEDS: Lidocaine 1% with EPINEPHrine 1:100,000 50 ML MDV SUBCUT STA
[2024-08-24] MEDS: Bacitracin Oint 1 GM U/D Packet TOP ONE
[2024-08-24 01:49] VITALS: BP 142/69
== END 2024-08-24 02:29 | disposition home or self-care (01) ==
LOC: JP.ED 22:48
DX: S02.85XA Fracture of orbit, unspecified, initial encounter for closed fracture (principal); S01.01XA Laceration without foreign body of scalp, initial encounter; E78.00 Pure hypercholesterolemia, unspecified; Z88.0 Allergy status to penicillin; Z88.2 Allergy status to sulfonamides; Z88.5 Allergy status to narcotic agent; Z91.040 Latex allergy status; Z79.890 Hormone replacement therapy; Z79.899 Other long term (current) drug therapy; W19.XXXA Unspecified fall, initial encounter; Y92.009 Unspecified place in unspecified non-institutional (private) residence as the place of occurrence of the external cause
CPT/HCPCS: 12031; 36415; 70450; 70486; 72125; 76377; 80048; 80307; 85025; 93010; 99283; 99284

== ENCOUNTER 2024-11-08 12:46 | Emergency (ER) | payer MEDICARE ==
[2024-11-08 15:08] VITALS: BP 115/58; PULSE 74
[2024-11-08] MEDS: Bacitracin Oint 1 GM U/D Packet TOP ONE (15:53)
== END 2024-11-08 15:57 | disposition home or self-care (01) ==
LOC: JP.ED 12:46
DX: S80.212A Abrasion, left knee, initial encounter (principal); L08.9 Local infection of the skin and subcutaneous tissue, unspecified; Z88.0 Allergy status to penicillin; Z88.5 Allergy status to narcotic agent; Z91.010 Allergy to peanuts; Z88.8 Allergy status to other drugs, medicaments and biological substances; Z88.2 Allergy status to sulfonamides; Z79.899 Other long term (current) drug therapy; Z79.890 Hormone replacement therapy; E78.00 Pure hypercholesterolemia, unspecified; W01.0XXA Fall on same level from slipping, tripping and stumbling without subsequent striking against object, initial encounter; Y93.89 Activity, other specified
CPT/HCPCS: 73562-26-LT; 73562-LT; 99283

== ENCOUNTER 2024-11-12 10:27 | Emergency (ER) | payer MEDICARE ==
[2024-11-12 11:40] VITALS: BP 138/75; PULSE 79
== END 2024-11-12 12:33 | disposition home or self-care (01) ==
LOC: JP.ED 10:27
DX: L03.116 Cellulitis of left lower limb (principal); E78.00 Pure hypercholesterolemia, unspecified; Z88.0 Allergy status to penicillin; Z91.040 Latex allergy status; Z88.2 Allergy status to sulfonamides; Z88.8 Allergy status to other drugs, medicaments and biological substances; Z88.5 Allergy status to narcotic agent; Z79.899 Other long term (current) drug therapy; Z79.890 Hormone replacement therapy
CPT/HCPCS: 99282; 99283

== ENCOUNTER 2024-11-14 17:48 | Emergency (ER) | payer MEDICARE ==
[2024-11-14 18:43] VITALS: BP 120/69; PULSE 83
== END 2024-11-14 18:49 | disposition home or self-care (01) ==
LOC: JP.ED 17:48
DX: Z53.21 Procedure and treatment not carried out due to patient leaving prior to being seen by health care provider (principal)

== ENCOUNTER 2025-01-29 12:32 | Emergency (ER) | payer MEDICARE, MEDICAID ==
[2025-01-29] MEDS: Aluminum Hydroxide/Magnesium Hydroxide/Simethicone Susp 30 ML Cup PO ONE (13:28)
[2025-01-29 13:36] LABS: BASOPHILS ABSOLUTE AUTO 0.04 K/uL (0.00-0.10); BASOPHILS PERCENT AUTO 0.3 % (0.1-1.3); EOSINOPHILS ABSOLUTE AUTO 0.13 K/uL (0.00-0.40); EOSINOPHILS PERCENT AUTO 0.9 % (0.0-5.4); IMMATURE GRAN ABSOLUTE AUTO 0.06 K/uL (0.00-0.23); IMMATURE GRAN PERCENT AUTO 0.4 % (0.0-0.7); LYMPHOCYTES ABSOLUTE AUTO 1.01 K/uL (0.8-3.3); LYMPHOCYTES PERCENT AUTO 6.9 % (11.4-47.7); MONOCYTES ABSOLUTE AUTO 1.02 K/uL (0.20-0.90); MONOCYTES PERCENT AUTO 7.0 % (3.3-12.6); NEUTROPHILS ABSOLUTE AUTO 12.30 K/uL (1.0-7.6); NEUTROPHILS PERCENT AUTO 84.5 % (40.0-78.1); PLATELET COUNT,PLT 252 K/uL (130-375); RED BLOOD CELL COUNT 4.04 M/uL (3.77-5.24); WHITE BLOOD CELL COUNT,WBC 14.6 K/uL (3.2-11.0)
[2025-01-29 14:00] LABS: BLOOD UREA NITROGEN,BUN 23.0 mg/dL (7-18); CARBON DIOXIDE,CO2 29.0 mmol/L (21-32); CHLORIDE,CL 101.0 mmol/L (100-108); CREATININE 0.8 mg/dL (0.6-1.0); EST CRCL DRUG DOSING (CG) 78.15 mL/min; ESTIMATED GFR 84.0 mL/min (>60); GLUCOSE RANDOM 106.0 mg/dL (74-106); POTASSIUM,K 4.0 mmol/L (3.6-5.2); SODIUM,NA 137.0 mmol/L (140-148); TROPONIN I HIGH SENSITIVITY 4.7 pg/mL (<=60.3)
[2025-01-29 14:25] VITALS: BP 124/76; PULSE 72
== END 2025-01-29 14:25 | disposition home or self-care (01) ==
LOC: JP.ED 12:32
DX: K21.9 Gastro-esophageal reflux disease without esophagitis (principal); E78.00 Pure hypercholesterolemia, unspecified; E05.90 Thyrotoxicosis, unspecified without thyrotoxic crisis or storm; Z88.0 Allergy status to penicillin; Z91.040 Latex allergy status; Z88.5 Allergy status to narcotic agent; Z88.8 Allergy status to other drugs, medicaments and biological substances; Z88.2 Allergy status to sulfonamides; Z79.899 Other long term (current) drug therapy; Z79.890 Hormone replacement therapy
CPT/HCPCS: 36415; 80048; 84484; 85025; 99284; A9270